=== PATIENT | female | born 1980 | race Caucasian/White ===

== ENCOUNTER → 2016-10-27 | Outpatient (CLI) | payer BC ==
[~2016-10-27] MED LIST: ANTACID; CALCIUM 600 +1 EAC1 PO; CETIRIZINE HCL5 MG PO; EXCEDRIN CAPLE1 EACH PO; IBUPROFEN200 MG PO; MULTI VITAMIN1 EACH PO; PEPCID20 MG PO; SPRINTEC1 EACH PO; VITAMINC500 PO
--- NOTE | ~2016-10-27 | HC ---
[facility] [address] [place] [address] CONSULTATION Name: HILARIA SINGH Room #: [facility]#: [id number] Admission: 10/27/16 Attend Phys: Juan Sethi MD Discharge: Date of : 76 Report #: [id number] THIS REPORT FOR: //name// CC: Juan Sethi [facility] physician/PCP Patient's Outpatient Chart DATE OF SERVICE: 10/27/[address] Juan Sethi. CHIEF COMPLAINT: This is a very pleasant 36-year-old white female who presented with a chief complaint of 1-1/2 weeks of daily nausea and vomiting. Initially, this vomiting and nausea occurred at night and was associated with dry heaves, but as time went on, the patient developed daytime nausea and vomiting and burning epigastric pain that radiates around into her back. She thinks it is exacerbated by eating spicy, fatty foods. PAST MEDICAL HISTORY: Significant for good health. She does have seasonal allergies. PAST SURGICAL HISTORY: Significant for removal of an ovarian cyst at age 16. She has had 3 fractured arms in falls and those have been repaired. ALLERGIES: BACTRIM AND MORPHINE. MEDICATIONS: Include multiple vitamins, control pills, Zyrtec, vitamin C, ibuprofen, Excedrin and Pepcid. SOCIAL HISTORY: She does not smoke. She does not drink alcohol. She has never had a blood transfusion. FAMILY HISTORY: Negative for colon polyps, colon cancers, Crohn's disease and ulcerative colitis. REVIEW OF SYSTEMS: She denies any dysphagia or odynophagia. She does have gastroesophageal reflux symptoms. She denies any history of hiatal hernia or peptic ulcer disease. Her weight has been stable and ordinarily, her appetite has been good, but she is afraid to eat because of this nausea and vomiting. The nausea and vomiting was of recent onset 1-1/2 weeks ago. She denies any change in bowel habits such as increasing constipation or diarrhea. She denies any hematemesis, hematochezia or melena. She has no history of jaundice, hepatitis or pancreatitis in the past. [facility] [address] [place] [address] CONSULTATION Name: HILARIA SINGH Alfa Room #: [facility]#: [id number] Admission: 10/27/16 Attend Phys: Juan Sethi MD Discharge: Date of : 76 Report #: [id number] PHYSICAL EXAMINATION: GENERAL: Reveals a well-developed, well-nourished 36-year-old white female in no obvious distress at the time of our examination, who is awake, alert, oriented x 4 and cooperative and pleasant to converse with. VITAL SIGNS: Stable. The patient is afebrile. HEENT: She is normocephalic, atraumatic and anicteric. HEART: Rate and rhythm are regular with a normal S1 and S2. LUNGS: Clear bilaterally. ABDOMEN: Soft, bowel sounds are present in all 4 quadrants. There is no palpable organomegaly or mass. There is tenderness to palpation in the mid epigastrium and in the right upper quadrant. There is no rebound or guarding. EXTREMITIES: Warm and dry. NEUROLOGIC: She appears grossly intact without lateralizing signs, but I did not test her extensively neurologically. She did have a CT angiogram of the abdomen and pelvis, which revealed patent mesenteric arteries and normal aorta and good patency of her lower extremity arteries as well, which are all patent. Liver was normal in size with no focal lesions. The gallbladder and biliary system appeared normal. There was no intra or extrahepatic bile duct dilatation. Pancreas appeared normal. The lungs, liver, spleen, adrenals and kidneys appeared normal. There was no retroperitoneal adenopathy. Gastrointestinal tract appeared normal. In the pericecal region, there are noted minimally enlarged lymph nodes in the mesenteric fat and the largest one of these is 1.0 cm. The etiology of this is not clear. Her bladder appeared normal and her uterus and adnexa were unremarkable. She had some pericecal lymphadenopathy with a normal appendix. LABORATORY DATA: Showed a normal BNP. Basic metabolic profile, her hCG was negative for . IMPRESSION: 1. Burning epigastric pain with right upper quadrant pain that radiates around into her back, worse with spicy food intake and fatty food intake, nausea and vomiting started about 3 weeks ago and became a daily issue about 1-1/2 weeks ago. 2. Gastroesophageal reflux. 3. Seasonal allergies. 4. Pericecal minor lymphadenopathy, uncertain etiology, possible mesenteric adenitis is in the differential diagnosis. RECOMMENDATIONS: My recommendations at this point are to proceed with an EGD. The risks of bleeding, perforation, infection, complications of sedation and the possibility that I could miss something have been explained to the patient and she is willing to proceed. [address] [address] CONSULTATION Name: HILARIA SINGH Room #: [facility]#: [id number] Admission: 10/27/16 Attend Phys: Juan Sethi MD Discharge: Date of : 76 Report #: [id number] Thank you very much for allowing me to participate in her care. By: 0829 Christin Wall DO /nt
--- NOTE | ~2016-10-27 | P ---
[facility] [place] [address] [place] [address] PROCEDURE REPORT Name: HILARIA SINGH Room #: REG [facility]#: [id number] Admission: 10/27/16 Attend Phys: Juan Sethi MD Discharge: Date of : 76 Report #: [id number] THIS REPORT FOR: //name// CC: Juan Sethi [facility] physician/PCP Patient's Outpatient Chart DATE OF SERVICE: 10/27/[address] Juan Sethi ____. PROCEDURE: Esophagogastroduodenoscopy. INDICATION FOR PROCEDURE: To evaluate burning epigastric pain, 3 weeks of nausea, vomiting and dry heaves and right upper quadrant pain that radiates around to her back and this associated with fatty food intake and spicy food intake. Informed consent for this procedure was obtained prior to the administration of any medication. The risks of the procedure which include bleeding, perforation, infection, complications of sedation and the possibility that I could miss something have been explained to the patient and she has indicated her consent by signing. Propofol was slowly titrated before and during this procedure for patient comfort by the anesthesia service. The evolson upper videoscope was introduced through the upper esophageal sphincter and advanced under direct visualization to the descending duodenum. Findings are noted on withdrawal of the scope. The duodenal mucosa appears normal throughout its entirety except for some mild duodenal erythema. Pylorus, normal mucosa. Antrum, mild gastric erythema is noted. Body, mild gastric erythema is noted. Cardia and fundus, normal mucosa. Biopsies are obtained x 3 from the gastric antrum for histopathology and to evaluate for H. pylori infection. Good hemostasis was noted after the biopsies. Retroflex view did not reveal any hiatal hernia. The scope was withdrawn to the esophagus. The Z-line is appropriately located at the top the gastric folds and appears normal. The esophageal mucosa appears normal throughout its entirety. The scope was withdrawn. The patient went to the recovery area in stable condition. She tolerated the procedure well. IMPRESSION: Mild gastroduodenitis with erythema as above. Biopsies pending. RECOMMENDATIONS: To await the biopsy results. I would recommend she proceed to a PIPIDA scan with gallbladder ejection traction at this time. [facility] [address] [place] [address] PROCEDURE REPORT Name: NILSA SINGHCristo Grimm Room #: REG [facility].#: [id number] Admission: 10/27/16 Attend Phys: Juan Sethi MD Discharge: Date of : 76 Report #: [id number] Thank you very much once again for allowing me to participate in her care, Dr. Sethi. By: [id number] Christin Wall DO /nt
--- NOTE | ~2016-10-27 | S ---
[facility] [place] [address] SURGICAL PATH RPT PROCEDURE Name: HILARIA SINGH Room #: REG [facility].#: [id number] Admission: 10/27/16 Date of : 76 Discharge: Report #: [id number] Path Case #: [id number] PATHOLOGY REPORT COLLECTION DATE: 10/27/2016 RECEIVED DATE: 10/28/2016 SUBMITTING PHYS: Dr. Christin Wall OTHER PHYS: Dr. Juan Sethi SPECIMEN(S) RECEIVED: A.Gastric bx * * * * * * * * * * * * FINAL DIAGNOSIS: "Gastric BX", biopsy: - Gastric mucosa with mild reactive changes and mild chronic inflammation. - Negative H. pylori immunohistochemical stain (block A1); control reacted appropriately. (CLW:mml; 10/29/2016) PATHOLOGIST: Puja Zapata M.D. REPORT ELECTRONICALLY SIGNED BY: Puja Zapata M.D. DATE/TIME: 10/29/2016 23:42 * * * * * * * * * * * * GROSS PATHOLOGY: Received in formalin labeled "Hilaria Singh, gastric BX," is a segment of dover soft tissue measuring 0.6 cm in maximum dimension. The specimen is submitted entirely in cassette A1. (TSD; 10/28/2016) CLINICAL HISTORY: Pre-OP DX: Abdominal pain Post-OP DX: Mild gastritis INITIAL CPT CODE(S): A; 34073, 63189 Professional services performed by [facility] at [facility] [address], [place] [address] Technical services performed by [facility] at [address] [place] [address], [address] [address]. [facility] [address] [place] [address] SURGICAL PATH RPT PROCEDURE Name: HILARIA SINGH Room #: [facility]#: [id number] Admission: 10/27/16 Date of : 76 Discharge: Report #: [id number] Path Case #: [id number] [email or web address] [address] [address] PHONE: [phone] DIRECTOR: Benitez Gar M.D. * * * END OF REPORT * * *
[2016-10-27 10:45] LABS: CREATININE 0.7 mg/dL (0.6-1.0)
== END | disposition home or self-care (01) ==
LOC: CAT 10:08 → GI 10:08
PROVIDERS: Nuclear Medicine Nuclear Cardiology
DX: K29.90 Gastroduodenitis, unspecified, without bleeding (principal); Z88.8 Allergy status to other drugs, medicaments and biological substances; Z98.890 Other specified postprocedural states; K21.9 Gastro-esophageal reflux disease without esophagitis
CPT/HCPCS: 62110; 62900

== ENCOUNTER → 2016-10-29 | Outpatient (CLI) | payer BC | LOC: NUC 09:17 | DX: R10.9 Unspecified abdominal pain (principal) ==